=== PATIENT | male | born 1990 | race Asian ===

== ENCOUNTER 2018-04-14 14:08 | Emergency (ER) | payer OTHER ==
[2018-04-14] MEDS: ACETAMINOPHEN 325 MG TAB PO (16:08)
[2018-04-14] MEDS: LIDOCAINE/MYLANTA 40 ML BTL PO (16:09)
[2018-04-14] MEDS: LOPERAMIDE 2 MG CAP PO (16:17)
== END 2018-04-14 16:36 | disposition home or self-care (01) ==
LOC: FTE 14:08
DX: R19.7 Diarrhea, unspecified (principal)
CPT/HCPCS: 99284; Z7502

== ENCOUNTER 2018-05-23 17:38 | Emergency (ER) | payer SELFPAY, OTHER | END 2018-05-23 20:20 | disposition left against medical advice (07) | LOC: E/R 17:38 | DX: Z53.21 Procedure and treatment not carried out due to patient leaving prior to being seen by health care provider (principal) ==

== ENCOUNTER 2018-05-24 13:19 | Emergency (ER) | payer SELFPAY | END 2018-05-24 15:40 | disposition left against medical advice (07) | LOC: FTE 13:19 | DX: Z53.21 Procedure and treatment not carried out due to patient leaving prior to being seen by health care provider (principal) ==

== ENCOUNTER 2018-09-26 09:44 | Emergency (ER) | payer OTHER | END 2018-09-26 11:23 | disposition home or self-care (01) | LOC: FTE 09:44 | DX: B34.9 Viral infection, unspecified (principal) | CPT/HCPCS: 99282; Z7502 ==